=== PATIENT | female | born 1940 | race Caucasian/White ===

== ENCOUNTER 2025-02-20 09:06 | Outpatient (CLI) | payer MEDICARE, BC | END 2025-02-20 09:07 | disposition home or self-care (01) | LOC: CSHWCC 09:06 | PROVIDERS: ATTEND Nurse Practitioner Family | DX: I87.311 Chronic venous hypertension (idiopathic) with ulcer of right lower extremity (principal); L97.811 Non-pressure chronic ulcer of other part of right lower leg limited to breakdown of skin | CPT/HCPCS: 99213; G0463 ==